=== PATIENT | female | born 1980 | race Two or more races ===

== ENCOUNTER 2017-03-30 08:31 | Emergency (ER) | payer SELFPAY ==
[~2017-03-30] VITALS: Ht 162.6 cm; Wt 70.0 kg
[2017-03-30] MEDS ORDERED: NAPR220T66 PO (08:46)
[2017-03-30] MEDS ORDERED: [UNRECOGNIZED DRUG - OTHER] (08:46)
[2017-03-30] MEDS ORDERED: CLAR10 PO (08:46)
[2017-03-30] MEDS ORDERED: IBUPROFEN 600MG TABLET PO ONE (09:30)
[2017-03-30 09:54] VITALS: BP 124/80
== END 2017-03-30 09:55 | disposition home or self-care (01) ==
LOC: ER 09:01
DX: J06.9 Acute upper respiratory infection, unspecified (principal)
CPT/HCPCS: 81025; 99283

== ENCOUNTER 2017-05-13 14:02 | Emergency (ER) | payer SELFPAY ==
[~2017-05-13] VITALS: Ht 162.6 cm; Wt 66.0 kg
[~2017-05-13 14:02] MED LIST: CLAR10 PO; NAPR220T66 PO; [UNRECOGNIZED DRUG - OTHER]
[2017-05-13 14:11] VITALS: BP 127/83
== END 2017-05-13 14:50 | disposition home or self-care (01) ==
LOC: ER 14:14
DX: J40 Bronchitis, not specified as acute or chronic (principal); J06.9 Acute upper respiratory infection, unspecified
CPT/HCPCS: 99283

== ENCOUNTER 2019-02-02 12:52 | Emergency (ER) | payer SELFPAY ==
[~2019-02-02] VITALS: Ht 165.1 cm; Wt 64.0 kg
[2019-02-02] MEDS ORDERED: SODIUM CHLORIDE 0.9% 1,000 ML IV ONE (14:27)
[2019-02-02 14:43] LABS: BASOPHILS % 0.6 % (0.0-2.0); EOSINOPHILS % 0.2 % (0.0-5.0); HEMATOCRIT. 29.9 % (36.0-48.0); HEMOGLOBIN. 9.7 g/dL (12.0-16.0); LYMPHOCYTES % 15.7 % (20.0-50.0); MEAN CORPUSCULAR HEMOGLOBIN 24.4 pg (28.0-32.0); MEAN CORPUSCULAR VOLUME 75.5 fL (81.0-99.0); MEAN PLATELET VOLUME 10.2 fl (7.4-10.4); MONOCYTES % 6.5 % (2.0-8.0); PLATELET 235 x1000/uL (130-400); RED BLOOD CELL COUNT 3.97 mill/uL (4.2-5.4); RED CELL DISTRIBUTION WIDTH 13.8 % (11.6-14.6)
[2019-02-02 14:49] LABS: CHLORIDE 110 mEq/L (98-107)
[2019-02-02 14:54] LABS: CLARITY URINE CLEAR (CLEAR); COLOR URINE YELLOW (YELLOW); KETONES URINE TRACE (NEGATIVE); LEUKOCYTE ESTERASE URINE 1+ (NEGATIVE); NITRITE URINE NEGATIVE (NEGATIVE); OCCULT BLOOD URINE 1+ (NEGATIVE); PH URINE 6.5 (4.5-8.0); PROTEIN URINE NEGATIVE (NEGATIVE); SPECIFIC GRAVITY URINE 1.016 (1.005-1.030); UROBILINOGEN URINE 0.2 E.U./dL (0.2-1.0)
[2019-02-02 15:30] VITALS: BP 111/65
== END 2019-02-02 16:19 | disposition home or self-care (01) ==
LOC: ER 13:26
DX: R42 Dizziness and giddiness (principal); Z88.6 Allergy status to analgesic agent
CPT/HCPCS: 36415; 71045; 80053; 81003; 81025; 83690; 83735; 84484; 85025; 93005; 96360; 99284; J7030

== ENCOUNTER 2021-03-15 05:23 | Emergency (ER) | payer MEDICAID ==
[~2021-03-15] VITALS: Ht 160 cm; Wt 64.0 kg
[2021-03-15 05:29] VITALS: BP 148/84
[2021-03-15] MEDS ORDERED: ACETAMINOPHEN WITH CODEINE 300/30MG TABLET PO ONE (06:00)
[2021-03-15] MEDS ORDERED: BACITRACIN ZINC OINT UDPKT TOP ONE (07:00)
[2021-03-15] MEDS ORDERED: TOPUD PO (08:43)
== END 2021-03-15 09:11 | disposition home or self-care (01) ==
LOC: ER 05:23
DX: S80.212A Abrasion, left knee, initial encounter (principal); S80.211A Abrasion, right knee, initial encounter; R07.89 Other chest pain; M25.562 Pain in left knee; M25.561 Pain in right knee; M54.6 Pain in thoracic spine; M25.461 Effusion, right knee; Z98.890 Other specified postprocedural states; Z79.899 Other long term (current) drug therapy; Z88.8 Allergy status to other drugs, medicaments and biological substances; V89.2XXA Person injured in unspecified motor-vehicle accident, traffic, initial encounter; Y93.I9 Activity, other involving external motion; Y92.89 Other specified places as the place of occurrence of the external cause; Y99.8 Other external cause status
CPT/HCPCS: 71101; 73562; 81025; 93005; 99284